=== PATIENT | female | born 1970 | race Caucasian/White ===

== ENCOUNTER → 2019-10-03 17:21 | Outpatient (CLI) | payer OTHER, SELFPAY ==
--- NOTE | ~2019-10-03 | XR_ITS ---
EXAMINATION: XR wrist RT min 3V DATE: 10/03/2019 17:32 INDICATION: Osteoarthritis with generalized right wrist pain and swelling TECHNIQUE: Posteroanterior, ulnar deviation, oblique, and lateral views of the right wrist were obtai jada. COMPARISON: 05/31/2019 FINDINGS: Alignment is normal. No fracture. Joint spaces are normal with no erosions or osteophytosis. No perio steal action. Soft tissues are unremarkable. IMPRESSION: 1. Normal right wrist radiographs. Reviewed, dictated and finalized at location A. [facility] [employer]
== END ==
PROVIDERS: PCP Family Medicine; Visit Provider Plastic Surgery
DX: M19.031 Primary osteoarthritis, right wrist (principal)
CPT/HCPCS: 73110

== ENCOUNTER 2020-07-14 14:25 | Emergency (ER) | payer OTHER, SELFPAY ==
--- NOTE | ~2020-07-14 | XR_ITS ---
EXAMINATION: XR knee RT min 4V DATE: 07/14/2020 14:52 INDICATION: Right knee pain post fall down stairs TECHNIQUE: Anteroposterior, 2 oblique and crosstable lateral views of the right knee were obtained COMPARISON: None. FINDINGS: Alignment is normal. No fracture. No joint effusion/layering lipohemarthrosis. Joint spaces appear n ormal on nonweightbearing imaging. There is however suggestion of possible central/subchondral osteop hyte along the posterior margin of the lateral femoral condyle suggesting the possibility of overlyin g high-grade chondromalacia.. Soft tissues are unremarkable. IMPRESSION: 1. No right knee joint effusion or acute osseous abnormality. Reviewed, dictated and finalized at location A. [employer]
[2020-07-14 14:33] VITALS: BP 130/74; PULSE 94; RESP 16; TEMP 36.9; O2SAT 100
--- NOTE | 2020-07-14 14:40 | ED.LOWEXIN ---
HPI - Extremity Injury (Lower) General Chief Complaint: Extremity Injury, Lower Stated Complaint: rt knee injury Time Seen by Provider: 07/14/20 14:40 Source: patient and RN notes reviewed History of Present Illness HPI Narrative: Patient is a 50-year-old female who presents the urgent care with complaints of right knee pain. Patient states that she fell down the concrete steps at the school today just prior to arrival. Patient states that she twisted the right knee but denies of any known direct fall or trauma to the knee. Denies of loss of consciousness or hitting her head. States the injury occurred while walking down 3 steps. Patient has placed ice on the knee but otherwise has not taken anything [id number] for her symptoms. Patient states that she is unable to bear weight due to the pain. Patient is tearful but otherwise no acute distress noted. Denies of any other injuries from the fall. Patient aware of the plan of care. Some parts of this dictation were generated by voice recognition software and may contain typographical and/or grammatical inaccuracies. Related Data Allergies Allergy/AdvReac Type Severity Reaction Status Date / Time No Known Allergies Allergy Unverified 05/19/20 17:07 Review of Systems Review of Systems: Narrative: CONSTITUTIONAL: Denies fever, chills, or sweats. EYES: Denies visual changes, redness, or discharge. ENT: Denies rhinorrhea, congestion, sore throat, or otalgia. CARDIOVASCULAR: Denies chest pain, palpitations, or edema. RESPIRATORY: Denies cough or dyspnea. GASTROINTESTINAL: Denies abdominal pain, nausea, vomiting, or diarrhea. GENITOURINARY: Denies dysuria or hematuria. SKIN: Denies rash or itching. MUSCULOSKELETAL: Reports of right knee pain NEUROLOGIC: Denies headache, numbness, or weakness. All other systems reviewed are negative, except as documented in HPI. [facility] Family History Family History Mother Patient's mother is in good health Father Family history of lung cancer Social History Social History (Updated 05/19/20 @ 17:08 by Megan Flood) Social History: Smoking status: Never smoker Second hand tobacco smoke exposure: No Alcohol intake: current Drinks per week: 8 Substance use: never Substance use type: does not use Gender identity (if verbalized by the patient): Female Comments At the time of my signature, I reviewed and agree with the nursing past medical, surgical, social, and family history. There is no relevant family history pertinent to the patient complaint. Exam Narrative: Exam Narrative: GENERAL: This is a well-nourished, well-developed patient, in no apparent distress. HEAD: normocephalic, atraumatic. EYES: PERRL. Sclera clear/white. Vision is grossly intact. EARS: External ears normal NOSE: External nose normal with no obvious nasal discharge, nares without redness, no rhinorrhea. THROAT: Mucous membranes moist NECK: Neck supple SKIN: warm, intact with no suspicious lesions or rash, good texture and turgor. NEURO: awake, alert, and oriented to person, place and time. There were no obvious focal neurologic abnormalities. EXTREMITIES: Mild anterior right knee edema with moderate tenderness to the anterior joint spaces. unable to test range of motion due to patient's pain. Unable to evaluate drawer test. Unable to perform any weightbearing to the right lower extremity. No shortening to the right lower extremity. Positive strong right pedal pulse with capillary refill less than 2 seconds. Course Vital Signs Vital signs: Vital Signs Temperature 98.5 F 07/14/20 14:33 Pulse Rate 94 07/14/20 14:33 Respiratory Rate 16 07/14/20 14:33 Blood Pressure 130/74 07/14/20 14:33 Pulse Oximetry 100 07/14/20 14:33 Temperature 98.5 F 07/14/20 14:33 Pulse Rate 94 07/14/20 14:33 Respiratory Rate 16 07/14/20 14:33 Blood Pressure 130/74 07/14/20 14:33
== END 2020-07-14 15:34 | disposition home or self-care (01) ==
PROVIDERS: Emergency Provider Nurse Practitioner Family; PCP Family Medicine
DX: M25.561 Pain in right knee (principal); I10 Essential (primary) hypertension
CPT/HCPCS: 73564; 99213; G0463; L1830

== ENCOUNTER → 2020-07-23 16:23 | Outpatient (CLI) | payer OTHER, SELFPAY ==
--- NOTE | ~2020-07-23 | MR_ITS ---
EXAMINATION: MR knee RT wo con DATE: 07/23/2020 17:47 INDICATION: Right knee pain. Right knee joint effusion. TECHNIQUE: Magnetic resonance imaging (MRI) of the right knee was performed without intravenous contr ast. Sequences included axial PD-weighted FS FSE, coronal PD-weighted FSE and PD-weighted FS FSE, sag ittal PD-weighted FSE, and sagittal T2-weighted FS FSE. COMPARISON: Right knee radiographs 07/14/2020 FINDINGS: Medial compartment: Medial meniscus is normal. Medial compartment cartilage is normal. Lateral compartment: Lateral meniscus is normal. There is cartilage surface irregularity of tibial condyle and femoral con dyle. There are tiny marginal osteophytes. Patellofemoral compartment: There is full-thickness cartilage loss of patellar medial facet, median ridge, and lateral facet with bone marrow edema and a subchondral cyst. There is deep cartilage fissuring of central trochlea. The re is deep partial thickness cartilage loss of lateral trochlea. Osteophytes are noted. Ligaments and tendons: The anterior and posterior cruciate ligaments are normal. The medial collateral ligament and lateral collateral complex are normal. There is an avulsion fracture of the proximal lateral margin of patell a at the attachment of the quadriceps tendon. No involvement of the articular surface. There is a par tial tear of the quadriceps tendon in this area. Fluid: There is a small knee joint effusion. There is moderate prepatellar and superficial infrapatellar bur sitis. IMPRESSION: 1. Avulsion fracture of proximal lateral margin of patella at the attachment of the quadriceps tendon with partial tear of the quadriceps tendon in this area. 2. Severe chondrosis of patellofemoral compartment and mild chondrosis of lateral compartment. 3. Small knee joint effusion. Reviewed, dictated and finalized at location A. [employer] IMPRESSION: 1. Avulsion fracture of proximal lateral margin of patella at the attachment of the quadriceps tendon with partial tear of the quadriceps tendon in this area. 2. Severe chondrosis of patellofemoral compartment and mild chondrosis of later al compartment. 3. Small knee joint effusion.
== END ==
PROVIDERS: PCP Family Medicine; Visit Provider Family Medicine
DX: M25.461 Effusion, right knee (principal); S82.001A Unspecified fracture of right patella, initial encounter for closed fracture; X58.XXXA Exposure to other specified factors, initial encounter
CPT/HCPCS: 73721